=== PATIENT | male | born 1945 | race Caucasian/White ===

== ENCOUNTER 2020-03-25 18:19 | Emergency (ER) | payer MEDICARE, BC ==
--- NOTE | 2020-03-25 18:33 | EDM.PDOC ---
ED HPI GENERAL MEDICAL PROBLEM - General Chief Complaint: CPR in Progress Stated Complaint: [facility] Time Seen by Provider: 03/25/20 18:25 Source of Information: Reports: EMS, Family, Old Records History Limitations: Reports: Altered Mental Status - History of Present Illness INITIAL COMMENTS - FREE TEXT/NARRATIVE: The patient presents by [facility] for cardiac arrest. The patient was discharged from [facility] in [place] on March 18. He was admitted for CHF, atrial fibrillation and cardiogenic shock. He did not feel well today and they called back to [facility] in [place] and they recommended he come back. His called 911 and EMS arrived to take him. He did not look good when they got him in the ambulance. They were putting on the rn cardiac cath and pulse oximeter and the patient stopped breathing. They started CPR and hooked up the AED. No shock was advised. They decided to come to [place] because it was the closest facility. They called for ALS assist from [facility]. When [facility] arrived, they found the patient in [facility]. They continued CPR and ALS measures. After 20 minutes of CPR they called the ER and the patient was pronounced at 6:10pm. Onset: Sudden Duration: Minutes: - Related Data Allergies Allergy/AdvReac Type Severity Reaction Status Date / Time Unable to Assess Allergy Unverified 03/25/20 18:33 Home Meds: Home Meds . [Unable to Verify Home Med List] 03/25/20 [History] ED ROS GENERAL - Review of Systems Review Of Systems: Unable To Obtain Reason Not Obtained: Patient unresponsive ED EXAM, CPR - Physical Exam Exam: See Below Limited By: Altered Mental Status General Appearance: Obtunded Head: Atraumatic, Normocephalic Respiratory Chest: Other (No ventilations) Cardiovascular: Other (no pulse) Course - Re-Assessments/Exams Free Text/Narrative Re-Assessment/Exam: 03/25/20 18:47 I pronounced the patient at 18:10 on 03/25/20. 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 I called the patient's to let her know. She will be coming to see the patient. I called Dr Meyer our airport clerk and he came to see the patient. There will be no autopsy. 03/25/20 18:49 Departure - Departure Time of Disposition: 18:50 Disposition: 20 Preliminary Cause of *Q: Cardiac Arrest Clinical Impression: Cardiac arrest - Discharge Information Forms: ED Department Discharge Sepsis Event Note - Focused Exam Date Exam was Performed: 03/25/20 Time Exam was Performed: 18:45
== END 2020-03-25 20:39 | disposition expired ==
LOC: JD.ED 18:19
DX: I46.9 Cardiac arrest, cause unspecified (principal)
CPT/HCPCS: 99285